=== PATIENT | male | born 1980 | race Two or more races ===

== ENCOUNTER 2022-12-09 15:47 | Outpatient (CLI) | payer OTHER | END 2022-12-09 15:54 | disposition home or self-care (01) | LOC: LAB 15:47 | PROVIDERS: ATTEND Radiology Diagnostic Radiology | DX: Q89.2 Congenital malformations of other endocrine glands (principal) ==

== ENCOUNTER → 2022-12-11 06:16 | Outpatient (CLI) | payer OTHER | END | disposition home or self-care (01) | LOC: LAB 06:16 | PROVIDERS: ATTEND Otolaryngology | DX: Q89.2 Congenital malformations of other endocrine glands (principal) ==

== ENCOUNTER 2022-12-11 07:32 | Outpatient (CLI) | payer OTHER | END 2022-12-11 07:43 | disposition home or self-care (01) | LOC: TOM 07:32 | PROVIDERS: ATTEND Otolaryngology | DX: Q89.2 Congenital malformations of other endocrine glands (principal) ==